=== PATIENT | female | born 1945 | race Caucasian/White ===

== ENCOUNTER → 2017-04-28 | Outpatient (CLI) | payer OTHER ==
[~2017-04-28] MED LIST: BACTRIM,SEPT1 TABLET PO; CEFADROXIL1 GM PO; ELIQUIS2.5 MG PO; GUAIFEN-CODEINE10 ML PO; HYDROCHLOROTHIA25 MG PO; LIPITOR40 MG PO; LO-DOSE ASPIRIN81 M2 PO; LOSARTAN POTASS25 MG PO; POTASSIUM CHLO10 ME3 PO; ZITHROMAX250 MG PO
== END | disposition home or self-care (01) ==
LOC: AMB 10:32
DX: T80.219A Unspecified infection due to central venous catheter, initial encounter (principal); Y84.8 Other medical procedures as the cause of abnormal reaction of the patient, or of later complication, without mention of misadventure at the time of the procedure; I87.8 Other specified disorders of veins; Z92.21 Personal history of antineoplastic chemotherapy
CPT/HCPCS: 87070; 87075; 87077; 87205

== ENCOUNTER → 2017-09-22 | Outpatient (CLI) | payer OTHER | END | disposition home or self-care (01) | LOC: NUC 09:42 | DX: M47.896 Other spondylosis, lumbar region (principal); M17.0 Bilateral primary osteoarthritis of knee; M19.072 Primary osteoarthritis, left ankle and foot; C77.3 Secondary and unspecified malignant neoplasm of axilla and upper limb lymph nodes | CPT/HCPCS: 78306; A9503 ==